=== PATIENT | female | born 1985 ===

== ENCOUNTER 2019-08-26 06:44 | Inpatient (IN) ==
[2019-08-26] MEDS ORDERED: OXYTOCIN/LR 20 UNIT/1,000 ML BAG IV ONE ×2 (07:34→20:52)
[2019-08-26] MEDS ORDERED: MEPERIDINE 50 MG/1 ML VIAL IV PRN (07:53)
[2019-08-26] MEDS ORDERED: ONDANSETRON 4 MG/2 ML VIAL IV PRN ×2 (07:53→20:52)
[2019-08-26] MEDS ORDERED: BUTORPHANOL 2 MG/ML VIAL IV PRN (07:53)
[2019-08-26] MEDS ORDERED: OXYTOCIN/LR 20 UNIT/1,000 ML BAG IV SCH (08:00)
[2019-08-26 08:10] LABS: Basophils % 0.4 % (0.0-0.8); Eosinophils # 0.1 10*3/uL (0.0-0.87); Eosinophils % 1.7 % (0.00-10.9); Hematocrit 36.6 VOL% (35.7-47.0); Hemoglobin 11.6 GM/DL (12.0-16.0); Immature Granulocytes % 0.7 %; Immature Granulocytes Absolute 0.04 #; Lymphocytes # 1.9 10*3/uL (1.4-4.0); Lymphocytes % 35.7 % (21.3-54.2); Mean Corpuscular HGB Conc 31.7 GM/DL (32-36); Mean Corpuscular Volume 86.1 FL (87-102); Mean Platelet Volume 10.4 FL (9.6-12.0); Monocytes % 4.3 % (1.7-12.7); Neutrophils % 57.2 % (38.7-73.9); Platelet Count 162 T/CUMM (130-400); Red Blood Count 4.25 MC/CUMM (3.8-5.5); Red Cell Distribution Width 16.8 % (9.3-17.3); White Blood Count 5.4 T/CUMM (4-12)
[2019-08-26] MEDS: LACTATED RINGERS 1,000 ML IV SCH ×2 (09:28→14:50)
[2019-08-26] MEDS ORDERED: diphenhydrAMINE 50 MG/1 ML VIAL IM ONE (16:48)
[2019-08-26] MEDS ORDERED: diphenhydrAMINE 50 MG/1 ML VIAL ONE (16:51)
[2019-08-26 17:02] LABS: Apearance,Urine CLEAR (Clear); Bilirubin,Urine Negative (Negative); Blood, Urine Moderate mg/dL (Negative); Glucose,Urine (UA) Negative (Negative); Ketones,Urine 80 mg/dL (Negative); Mucus,Urine Many /LPF (Occasional); Nitrite,Urine Negative (Negative); Protein,Urine 30 MG/DL; RBC,Urine 59 /HPF (0-4); Squamous Epithelial Cell,Urine Occasional /HPF (0-10); Urine Color Amber (Yellow); Urine Specific Gravity 1.024 (1.001-1.035); WBC,Urine 8 /HPF (0-6)
[2019-08-26] MEDS ORDERED: ePHEDrine 50 MG/ML AMP IV PRN (17:54)
[2019-08-26] MEDS ORDERED: LACTATED RINGERS 1,000 ML IV ONE (17:54)
[2019-08-26] MEDS ORDERED: CITRIC ACID/SODIUM CITRATE 30 ML UDCUP PO ONE (17:54)
[2019-08-26] MEDS ORDERED: FAMOTIDINE 20 MG/2 ML VIAL IV ONE (17:54)
[2019-08-26] MEDS ORDERED: NALOXONE 0.4 MG/ML VIAL IV PRN (17:55)
[2019-08-26] MEDS ORDERED: PROMETHAZINE 25 MG/1 ML VIAL IM ONE (17:55)
[2019-08-26] MEDS ORDERED: diphenhydrAMINE 50 MG/1 ML VIAL IV PRN ×2 (17:55)
[2019-08-26] MEDS ORDERED: hydrOXYzine HCL 25 MG/1 ML VIAL IM PRN (17:55)
[2019-08-26] MEDS ORDERED: fentaNYL 2 MCG/ROPIV 0.2% EPID 100 ML EPIDURAL SCH (18:00)
[2019-08-26] MEDS ORDERED: miSOPROStoL 200 MCG TABLET ONE (19:04)
[2019-08-26] MEDS ORDERED: METHYLERGONOVINE 0.2 MG/1 ML AMP ONE (19:05)
[2019-08-26] MEDS ORDERED: CARBOPROST TROMETHAMINE 250 MCG/ML AMP IM ONE (19:05)
[2019-08-26] MEDS ORDERED: ceFAZolin 2,000 MG in PREMIX 1 EACH IV ONE (19:31)
[2019-08-26] MEDS ORDERED: OXYTOCIN 10 UNIT/ML VIAL IM ONE (19:36)
[2019-08-26] MEDS ORDERED: OXYTOCIN/LR 30 UNIT/1,000 ML BAG IV ONE (19:37)
[2019-08-26] MEDS ORDERED: LIDOCAINE MPF 2% /EPI 20 ML VIAL ONE ×2 (19:43→21:11)
[2019-08-26] MEDS ORDERED: METHYLERGONOVINE 0.2 MG/1 ML AMP IM ONE (20:30)
[2019-08-26] MEDS ORDERED: ALBUTEROL/IPRATROPIUM 3 ML NEB RESP TX ONE (20:34)
[2019-08-26] MEDS ORDERED: ACETAMINOPHEN 325 MG TABLET PO PRN (20:52)
[2019-08-26] MEDS ORDERED: SIMETHICONE CHEW 80 MG TABLET PO PRN (20:52)
[2019-08-26] MEDS ORDERED: RHO(D) IMMUNE GLOBULIN 300 MCG SYRINGE IM ONE (20:52)
[2019-08-26] MEDS ORDERED: LACTATED RINGERS 1,000 ML IV SCH (21:00)
[2019-08-26] MEDS ORDERED: ceFAZolin 1,000 MG in SYRINGE 1 EACH IV SCH (21:00)
[2019-08-26] MEDS ORDERED: FUROSEMIDE 40 MG/4 ML VIAL IV SCH (21:00)
[2019-08-26] MEDS ORDERED: MORPHINE 10 MG/10 ML VIAL ONE (21:04)
[2019-08-26] MEDS ORDERED: MIDAZOLAM 2 MG/2 ML VIAL ONE (21:04)
[2019-08-26] MEDS ORDERED: fentaNYL 100 MCG/2 ML VIAL ONE (21:10)
[2019-08-26] MEDS ORDERED: PHENYLEPHRINE 1 MG/10 ML SYRINGE IV ONE (21:10)
[2019-08-26] MEDS ORDERED: methylPREDNISolone SOD SUC 125 MG/2 ML VIAL ONE (21:11)
[2019-08-26] MEDS ORDERED: SODIUM CHLORIDE 0.9% 250 ML IV ONE (21:11)
[2019-08-26] MEDS ORDERED: SODIUM BICARBONATE 50 MEQ/50 ML VIAL IV ONE (21:30)
[2019-08-27] MEDS: guaiFENesin/CODEINE 5 ML LIQUID PO PRN (01:07)
[2019-08-27] MEDS: OSELTAMIVIR 75 MG CAPSULE PO SCH ×3 (01:07→21:09)
[2019-08-27] MEDS: FUROSEMIDE 40 MG/4 ML VIAL IV SCH ×3 (02:08→14:10)
[2019-08-27] MEDS ORDERED: ALBUTEROL/IPRATROPIUM 3 ML NEB RESP TX PRN (03:00)
[2019-08-27] MEDS: DOCUSATE SODIUM 100 MG CAPSULE PO SCH ×2 (08:52→21:09)
[2019-08-27] MEDS: MAGNESIUM HYDROXIDE SUSP 30 ML UDCUP PO PRN ×2 (08:52→21:09)
[2019-08-27] MEDS: MULTIVITAMIN (PRENATAL) TABLET PO SCH (08:52)
[2019-08-27] MEDS: IBUPROFEN 800 MG TABLET PO PRN (08:52)
[2019-08-27] MEDS: FLUTICASONE 50 MCG NASAL SPRAY 16 GM BOTTLE BOTH NARES SCH ×2 (14:04→21:10)
[2019-08-27 14:18] LABS: Basophils % 0.1 % (0.0-0.8); Eosinophils % 0.1 % (0.00-10.9); Hemoglobin 11.2 GM/DL (12.0-16.0); Immature Granulocytes % 0.4 %; Immature Granulocytes Absolute 0.06 #; Lymphocytes # 2.3 10*3/uL (1.4-4.0); Lymphocytes % 17.1 % (21.3-54.2); Mean Corpuscular HGB Conc 32.9 GM/DL (32-36); Mean Corpuscular Volume 85.2 FL (87-102); Mean Platelet Volume 10.8 FL (9.6-12.0); Monocytes % 5.5 % (1.7-12.7); Neutrophils % 76.8 % (38.7-73.9); Platelet Count 194 T/CUMM (130-400); Red Blood Count 3.99 MC/CUMM (3.8-5.5); Red Cell Distribution Width 16.3 % (9.3-17.3); White Blood Count 13.4 T/CUMM (4-12)
[2019-08-27] MEDS ORDERED: ceFAZolin 1,000 MG in SYRINGE 1 EACH IV SCH (14:30)
[2019-08-27] MEDS ORDERED: METOCLOPRAMIDE 10 MG TABLET PO PRN (14:32)
[2019-08-27] MEDS: METOCLOPRAMIDE 10 MG TABLET PO SCH (23:50)
[2019-08-28] MEDS: guaiFENesin/CODEINE 5 ML LIQUID PO PRN (06:20)
[2019-08-28] MEDS: IBUPROFEN 800 MG TABLET PO PRN (06:22)
[2019-08-28 07:22] VITALS: BP 109/71
[2019-08-28] MEDS: MAGNESIUM HYDROXIDE SUSP 30 ML UDCUP PO PRN (08:45)
[2019-08-28] MEDS: MULTIVITAMIN (PRENATAL) TABLET PO SCH (08:45)
[2019-08-28] MEDS: METOCLOPRAMIDE 10 MG TABLET PO SCH (08:45)
[2019-08-28] MEDS: DOCUSATE SODIUM 100 MG CAPSULE PO SCH (08:45)
[2019-08-28] MEDS: FLUTICASONE 50 MCG NASAL SPRAY 16 GM BOTTLE BOTH NARES SCH (08:46)
[2019-08-28] MEDS: OSELTAMIVIR 75 MG CAPSULE PO SCH (08:46)
== END 2019-08-28 14:50 | disposition home or self-care (01) | DRG 788 ==
LOC: N.LDOUT 06:44 → N.LD 06:46 → N.OB 08-27 14:12
PROVIDERS: ADMIT Obstetrics & Gynecology; ATTEND Obstetrics & Gynecology
PROC: LDCSECT (ICD-10-PCS; 2019-08-26 20:00)